=== PATIENT | male | born 1965 | race Caucasian/White ===

== ENCOUNTER → 2016-11-23 | Day surgery (SDC) | payer BC ==
[~2016-11-23] MED LIST: Lactated Ringers 1,000 ML IV SCH; Propofol 200 MG/20 ML SDV IV ONE
--- NOTE | 2016-11-23 12:21 | OR ---
DATE OF OPERATION: 11/23/2016 PREOPERATIVE DIAGNOSIS: FOLLOWUP POLYPS. POSTOPERATIVE DIAGNOSIS: FOLLOWUP POLYPS. SURGEON: Camilo Boland MD PROCEDURE: FULL-LENGTH COLONOSCOPY WITH POLYP REMOVAL X1. 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 COMPLICATIONS: None. SPECIMEN: Villous adenoma approximately 0.5 cm of splenic flexure. FINDINGS: 1. Full-length colonoscopy. 2. Villous adenoma, splenic flexure. RECOMMENDATIONS: Follow up colonoscopy in three years. INDICATIONS: The patient has a prior history of polyps. He is in for routine followup scope. DESCRIPTION OF PROCEDURE: The patient was prepped and draped, placed in the left lateral decubitus position. A lubricated Olympus colonoscope was inserted and easily advanced to the cecum. Direct visualization of the ileocecal valve and appendiceal orifice was accomplished. Bowel prep was adequate. Upon withdrawal, cecum, ascending and transverse colon appeared benign. Just past the splenic flexure, the patient had a flat villous adenoma, along the haustral fold that was very difficult to get to and due to its location, difficult to get a snare around it. We ultimately used a forceps and using five separate cold forceps biopsies removed this polyp in its entirety without any complication. Resolution of bleeding was spontaneous. The rest of the descending and sigmoid colon appeared benign. There were no other polyps, masses, ulcerations, or bleeding sites. No vascular abnormalities or signs of colitis. No significant diverticula. The rectal vault were unremarkable. Retroflexion of scope in the rectum showed no anal lesions. Air was then suctioned. Scope was removed without complication. DEMETRIO/SANDRA /[id number]
== END ==
LOC: CC.SDS 09:01
PROVIDERS: ATTEND Family Medicine
DX: Z12.11 Encounter for screening for malignant neoplasm of colon (principal); D12.3 Benign neoplasm of transverse colon; G47.33 Obstructive sleep apnea (adult) (pediatric); M19.90 Unspecified osteoarthritis, unspecified site; E78.00 Pure hypercholesterolemia, unspecified; E55.9 Vitamin D deficiency, unspecified; N40.1 Benign prostatic hyperplasia with lower urinary tract symptoms; N13.8 Other obstructive and reflux uropathy; R35.1 Nocturia; N52.9 Male erectile dysfunction, unspecified; Z86.010 Personal history of colon polyps; Z98.49 Cataract extraction status, unspecified eye; Z90.49 Acquired absence of other specified parts of digestive tract; Z98.890 Other specified postprocedural states
CPT/HCPCS: 45385; J2704; J7120

== ENCOUNTER → 2020-02-12 | Day surgery (SDC) | payer BC ==
--- NOTE | 2020-02-14 13:27 | OR ---
DATE OF OPERATION: 02/12/2020 PREOPERATIVE DIAGNOSIS: HISTORY OF POLYPS. POSTOPERATIVE DIAGNOSIS: HISTORY OF POLYPS. SURGEON: Camilo Boland MD PROCEDURE: FULL-LENGTH COLONOSCOPY WITH SNARE POLYPECTOMY X3, FORCEPS POLYP REMOVAL X2. ANESTHESIA: MAC. COMPLICATIONS: None. SPECIMEN: 1. Small 3 mm sessile polyps at the splenic flexure. 2. Villous lesion, greater than 0.5 cm, descending colon. 3. Tubular adenomas x2 near rectosigmoid junction. FINDINGS: 1. Full-length colonoscopy. 2. Polyps x5. Please see above. RECOMMENDATIONS: Recommend followup colonoscopy in 3 years. INDICATIONS: The patient has prior colonoscopies with polyps being removed. He is due for a routine surveillance scope. DESCRIPTION OF PROCEDURE: The patient was prepped and draped, placed in the left lateral decubitus position. A lubricated Olympus colonoscope was inserted and with ease advanced to the cecum. Direct visualization of the ileocecal valve and appendiceal orifice was accomplished. The bowel prep was excellent. Upon withdrawal of the scope, the cecum, ascending, and transverse colon were benign. Just at the splenic flexure and in the immediate proximal descending colon, the patient had 2 small 3 mm sessile polyps, each removed in their entirety with a forceps. In the mid descending colon at around 70 cm, the patient had a larger villous lesion approximately 1.1 to 1.2 cm in size. It was removed with a snare and suctioned into polyp trap 1 without difficulty. The rest of the descending and most of the sigmoid colon were otherwise benign. In the distal descending colon, the patient had another small 4 to 5 mm tubular adenoma removed with a snare and suctioned into polyp trap #2. The last tubular adenoma was in the proximal rectal vault, also removed with a snare and suctioned into polyp trap #3. Retroflexion showed no perianal lesions other than significant hemorrhoidal tissue. Air was then suctioned. The scope removed without complication. DEMETRIO/SANDRA /[id number]
== END ==
LOC: CC.SDS 07:46
PROVIDERS: ATTEND Family Medicine
DX: Z12.11 Encounter for screening for malignant neoplasm of colon (principal); D12.4 Benign neoplasm of descending colon; D12.3 Benign neoplasm of transverse colon; K62.1 Rectal polyp; K64.4 Residual hemorrhoidal skin tags; Z86.010 Personal history of colon polyps; Z98.890 Other specified postprocedural states; E78.00 Pure hypercholesterolemia, unspecified; N40.0 Benign prostatic hyperplasia without lower urinary tract symptoms; G47.30 Sleep apnea, unspecified; Z79.899 Other long term (current) drug therapy
CPT/HCPCS: 00812; 45380; 45385; J2704; J7120

== ENCOUNTER 2023-11-01 10:43 | Day surgery (SDC) | payer BC ==
[2023-11-01] MEDS: Lactated Ringers 1,000 ML IV SCH (10:54)
[2023-11-01] MEDS ORDERED: fentaNYL 50 MCG/ML SDV ONE (11:10)
[2023-11-01] MEDS ORDERED: Propofol 200 MG/20 ML SDV ONE (11:10)
[2023-11-01] MEDS ORDERED: Midazolam 1 MG/ML 2 ML SDV ONE (11:10)
[2023-11-01] MEDS ORDERED: Flumazenil 0.1 MG/ML 10 ML MDV ONE (11:10)
[2023-11-01] MEDS ORDERED: Ketamine 200 MG/20 ML MDV ONE (11:10)
== END 2023-11-01 12:30 | disposition home or self-care (01) ==
LOC: CC.SDS 10:43
PROVIDERS: ATTEND Family Medicine
DX: Z12.11 Encounter for screening for malignant neoplasm of colon (principal); K62.1 Rectal polyp; E78.00 Pure hypercholesterolemia, unspecified; N40.0 Benign prostatic hyperplasia without lower urinary tract symptoms; G47.30 Sleep apnea, unspecified; E66.9 Obesity, unspecified; Z68.41 Body mass index [BMI] 40.0-44.9, adult; Z86.010 Personal history of colon polyps; Z79.899 Other long term (current) drug therapy
CPT/HCPCS: 00811; 45385; J2250; J2704; J3010; J7120; J3490